=== PATIENT | female | born 1965 | race Caucasian/White ===

== ENCOUNTER 2018-04-12 13:58 | Emergency (ER) | payer SELFPAY ==
[2018-04-12 14:10] VITALS: BP 152/95; PULSE 100; RESP 18; TEMP 97.9; O2SAT 100
--- NOTE | 2018-04-12 14:25 | C.PDOC ---
History Of Present Illness 52 y/o female pt presents to the ER c/o growth on right pinky toe for 6-8 months. Pt reports she was putting on her shoe when it started bleeding. Pt notes it is uncomfortable when her pinky toe is being touched. Pt denies change in sensation. Time Seen by Provider: 04/12/18 14:13 Chief Complaint (Nursing): Lower Extremity Problem/Injury History Per: Patient History/Exam Limitations: no limitations Onset/Duration Of Symptoms: Days (6-8 months ) Current Symptoms Are (Timing): Still Present Past Medical History Reviewed: Historical Data, Nursing Documentation, Vital Signs Vital Signs: Last Vital Signs Temp 97.9 F 04/12/18 14:06 Pulse 100 H 04/12/18 14:06 Resp 18 04/12/18 14:06 BP 152/95 H 04/12/18 14:06 Pulse Ox 100 04/12/18 14:06 Family History: States: No Known Family Hx - Social History Hx Alcohol Use: No Hx Substance Use: No Review Of Systems Except As Marked, All Systems Reviewed And Found Negative. Musculoskeletal: Positive for: Other (growth and discomfort on right pinky toe ) Neurological: Negative for: Other (change in sensation ) Physical Exam - Physical Exam Appears: Non-toxic, No Acute Distress Skin: Warm, Dry Head: Normacephalic Cardiovascular: Rhythm Regular Respiratory: Normal Breath Sounds Extremity: No Tenderness, Capillary Refill (<2 sec ), No Deformity, Other (granuloma-like growth on distal phalanx and distal part of right toe next to toe nail; no active bleeding or sign of infection, erythema or warmth) Pulses: Right Dorsalis Pedis: Normal Neurological/Psych: Oriented x3, Normal Speech, Normal Cognition, Normal Motor, Normal Sensation ED Course And Treatment O2 Sat by Pulse Oximetry: 100 (RA) Pulse Ox Interpretation: Normal Progress Note: Plans: -- referral tp podiatry. Reassess: On reassessment, patient is resting comfortably, and is in no acute distress. Patient is referred to podiatry for further evaluation. Disposition - Disposition Referrals: Podiatry Clinic [Outside] [facility] [Outside] Disposition: HOME/ ROUTINE Disposition Time: 14:25 Condition: STABLE Additional Instructions: Follow up with Instructional Resource Teacher/Clinic within 2-3 days. Return to ED if feel worse. Instructions: Skin Lesion Removal (DC) Forms: [employer] (Portuguese) - Clinical Impression Clinical Impression: Pyogenic granuloma - PA / NUTRITION TEACHER / Resident Statement MD/ has reviewed & agrees with the documentation as recorded. - Scribe Statement The provider has reviewed the documentation as recorded by the Sidraibdonna Pickens Do All medical record entries made by the Scribe were at my direction and personally dictated by me. I have reviewed the chart and agree that the record accurately reflects my personal performance of the history, physical exam, medical decision making, and the department course for this patient. I have also personally directed, reviewed, and agree with the discharge instructions and disposition.
== END 2018-04-12 14:40 | disposition home or self-care (01) ==
LOC: C.ER 13:58
DX: L98.0 Pyogenic granuloma (principal)